=== PATIENT | male | born 1985 | race American Indian/Alaskan Native ===

== ENCOUNTER 2018-07-28 13:35 | Emergency (ER) | payer SELFPAY ==
[2018-07-28] MEDS ORDERED: MORPHINE IV ONE (14:56)
[2018-07-28] MEDS ORDERED: NACL 0.9% 1000 ML 1,000 ML IV ONE (14:56)
--- NOTE | 2018-07-28 15:00 | Emergency Department Report ---
ED Seizure HPI - General Chief Complaint: Seizure Stated Complaint: SEIZURE Time Seen by Provider: 07/28/18 14:53 Source: EMS Mode of arrival: Stretcher Limitations: No Limitations - History of Present Illness Initial Comments: 33-year-old male with history of seizures presents to the ED following a seizure at work. Patient states he ran out of his zonisamide 2 weeks ago. Patient believes he hit his head during the seizure, complaining of headache at this time also reporting pain to all extremities. MD Complaint: seizure -: This afternoon Description of Episode: loss of consciousness Witnessed:: Yes Trauma: Yes (head injjury) Seizure History: known seizure disorder, history of non-compliance (out of meds x [address]) [address]: work Possible Precipitating Event: none Associated Symptoms: denies: chest pain, fever/chills, shortness of breath - Related Data Previous Rx's Medication Instructions Recorded Last Taken Type Zonisamide 100 mg PO BID #60 capsule 07/28/18 Unknown Rx Allergies Allergy/AdvReac Type Severity Reaction Status Date / Time No Known Allergies Allergy Unverified 07/28/18 14:17 ED Review of Systems ROS: Stated complaint: SEIZURE Other details as noted in HPI Comment: All other systems reviewed and negative Constitutional: denies: fever Respiratory: denies: shortness of breath Cardiovascular: denies: chest pain Gastrointestinal: denies: abdominal pain Musculoskeletal: as per HPI Neurological: headache ED Past Medical Hx - Past Medical History Previous Medical History?: Yes Hx Seizures: Yes - Social History Smoking Status: Current Every Day Smoker Substance Use Type: Alcohol - Medications Home Medications: Home Medications Medication Instructions Recorded Confirmed Last Taken Type Zonisamide 100 mg PO BID #60 capsule 07/28/18 Unknown Rx ED Physical Exam - General Limitations: No Limitations General appearance: alert, in no apparent distress - Head Head exam: Present: atraumatic, normocephalic - Eye Eye exam: Present: normal appearance, PERRL, EOMI - ENT ENT exam: Present: mucous membranes moist - Neck Neck exam: Present: normal inspection - Respiratory Respiratory exam: Present: normal lung sounds bilaterally. Absent: respiratory distress - Cardiovascular Cardiovascular Exam: Present: regular rate, normal rhythm - GI/Abdominal GI/Abdominal exam: Present: soft. Absent: distended, tenderness - Extremities Exam Extremities exam: Present: normal inspection - Neurological Exam Neurological exam: Present: alert, oriented X3, CN II-XII intact. Absent: motor sensory deficit - Psychiatric Psychiatric exam: Present: normal affect, normal mood - Skin Skin exam: Present: warm, dry, intact, normal color ED Course Vital Signs 07/28/18 07/28/18 07/28/18 14:37 14:38 17:32 Temperature 98.0 F Pulse Rate 89 80 Respiratory 15 15 16 Rate Blood Pressure 109/73 122/72 [Left] O2 Sat by Pulse 100 100 100 Oximetry ED Medical Decision Making - Lab Data Result diagrams: 07/28/18 15:08 07/28/18 15:08 - Radiology Data Radiology results: report reviewed, image reviewed - Medical Decision Making 33-year-old male with history of seizures, out of his zonisamide 2 weeks, had seizure activity at work. Patient reported head injury and headache during seizure. CT head negative. CK was obtained due to extremity pain. CK minimally elevated, possible mild rhabdomyolysis. However, renal function is normal, IV fluids were given. Patient feels much better at this time. Patient was loaded with Keppra since zonisamide unavailable at this facility. No further seizure activity here in ED. Will discharge at this time. Prescription given for zonisamide 100 mg twice a day. Outpatient follow-up advised. - Differential Diagnosis seizure, rhabdomyolysis, electrolyte abnormality, intracranial abnormality Critical care attestation.: If time is entered above; I have spent that time in minutes in the direct care of this critically ill patient, excluding procedure time. ED Disposition Clinical Impression: Seizure Disposition: DC-01 TO HOME OR SELFCARE Is pt being admited?: No Condition: Stable Instructions: Recurrent Seizures Adult (ED) Prescriptions: Zonisamide 100 mg PO BID #60 capsule Referrals: [facility] MD BETHEL [Primary Care Provider] - 3-5 Days WHITNEY SANCHEZ MD [Referring] - 3-5 Days Forms: Work/School Release Form(ED) Time of Disposition: 17:08
[2018-07-28] MEDS ORDERED: KEPPRA 1,000 MG in NACL 0.9% 100 ML IV ONE (15:19)
[2018-07-28 15:22] LABS: Basophils % (Auto) 0.4 % (0.0-1.8); Eosinophils % (Auto) 0.5 % (0.0-4.3); Hematocrit 43.1 % (35.5-45.6); Hemoglobin 14.6 gm/dl (11.8-15.2); Lymphocytes % (Auto) 14.6 % (13.4-35.0); Mean Corpuscular HGB Conc 34 % (32-34); Mean Corpuscular Volume 91 fl (84-94); Monocytes # (Auto) 0.8 K/mm3 (0.0-0.8); Platelet Count 163 K/mm3 (140-440); Red Blood Count 4.72 M/mm3 (3.65-5.03); Red Cell Distribution Width 15.4 % (13.2-15.2)
[2018-07-28 15:48] LABS: BUN/Creatinine Ratio 11; Blood Urea Nitrogen 11 mg/dL (9-20); Calcium 9.1 mg/dL (8.4-10.2); Hemolysis Index 43
[2018-07-28] MEDS ORDERED: KEPPRA 1,000 MG/NS 0.75% 100ML 1,000 MG/100 ML BAG IV ONE (16:00)
--- NOTE | 2018-07-28 16:06 | Cat Scan Report ---
PROCEDURE: CT HEAD/BRAIN WO CON TECHNIQUE: Axial helical imaging from the skull base to the vertex. HISTORY: seizure, head injury DLP: 920.48 COMPARISONS: None FINDINGS: There is no evidence of an acute intracranial process, intracranial hemorrhage or mass effect. The ventricles are normal size. The visualized portions of the orbits, paranasal and mastoid sinuses are notable for hypoplastic left mastoid sinus and mild to moderate bilateral ethmoid sinus mucosal thickening.. The bony structures are unremarkable. There is no evidence of fracture. IMPRESSION: 1. No evidence of an acute intracranial process, intracranial hemorrhage or mass effect. 2. No evidence of fracture. If this is a new onset seizure and if further imaging is required, MRI brain may be helpful for furth er evaluation. This document is electronically signed by Courtney Simpson MD., July 28 2018 04:04:00 PM ET
[2018-07-28 17:33] VITALS: BP 122/72
== END 2018-07-28 17:41 | disposition home or self-care (01) ==
LOC: ED 13:35
DX: R56.9 Unspecified convulsions (principal); F17.200 Nicotine dependence, unspecified, uncomplicated
CPT/HCPCS: 36415; 70450; 80048; 82550; 85025; 96365; 96375; 99284; J1953; J2270; J7030